=== PATIENT | female | born 1955 | race American Indian/Alaskan Native ===

== ENCOUNTER 2017-01-04 15:45 | Outpatient (CLI) | payer BC ==
--- NOTE | 2017-01-05 16:24 | XRay Report ---
CERVICAL SPINE SERIES THREE VIEWS: 01/04/17 15:45:00 CLINICAL: Neck pain. FINDINGS: Grade I C4-5 anterolisthesis. The rest of the bodies are normal alignment. Mild disc space narrowing at C4-5 with small anterior osteophyte. There is greater disc space narrowing and a more prominent anterior osteophyte at C6-7. No fracture. Moderate multilevel facet joint sclerosis. The odontoid and C1 are intact. IMPRESSION: Moderate degenerative disc disease and grade I C4-5 anterolisthesis. Recommend cervical spine flexion and extension views to exclude instability at C4-5.
== END 2017-01-04 15:46 | disposition home or self-care (01) ==
LOC: SPVIMAG 15:45
DX: M50.321 Other cervical disc degeneration at C4-C5 level (principal); M25.78 Osteophyte, vertebrae
CPT/HCPCS: 72040

== ENCOUNTER 2017-01-11 12:57 | Outpatient (CLI) | payer BC ==
--- NOTE | 2017-01-12 08:22 | Mammography Report ---
BILATERAL DIGITAL SCREENING MAMMOGRAM with CAD : 01/11/17 12:57:00 CLINICAL: Routine screening. COMPARISON:05/21/14 FINDINGS: The breasts are heterogeneously dense, which may obscure small masses. No mass, architectural distortion or suspicious calcifications. IMPRESSION: No mammographic evidence of malignancy. BI-RADS CATEGORY: 2 -- Benign RECOMMENDATION: Routine mammographic screening in one year. COMMENT: Patient follow-up letters are generated by our [employer] application.
== END 2017-01-11 12:58 | disposition home or self-care (01) ==
LOC: SPVWC 12:57
PROVIDERS: ATTEND Obstetrics & Gynecology
DX: Z12.31 Encounter for screening mammogram for malignant neoplasm of breast (principal)
CPT/HCPCS: 77067; G0202